=== PATIENT | female | born 1970 | race Hispanic/Latino ===

== ENCOUNTER 2023-11-22 13:39 | Emergency (ER) | payer BC, OTHER ==
[~2023-11-22] VITALS: Ht 167.6 cm; Wt 60.3 kg
[2023-11-22] MEDS: ketOROlac 60 MG VIAL (30MG/ML) IM ONE (14:53)
[2023-11-22] MEDS: dexaMETHasone SOD PHOSPHATE 4 MG/ML 1ML VIAL IM ONE (14:53)
[2023-11-22] MEDS ORDERED: METH4TAB3 PO (15:32)
[2023-11-22] MEDS ORDERED: CYCL-309 PO (15:32)
[2023-11-22 15:53] VITALS: BP 110/76; PULSE 86; RESP 16; TEMP 98.2; O2SAT 99
== END 2023-11-22 15:54 | disposition home or self-care (01) ==
LOC: EDH 13:39
DX: S46.811A Strain of other muscles, fascia and tendons at shoulder and upper arm level, right arm, initial encounter (principal); Z88.1 Allergy status to other antibiotic agents; Z98.890 Other specified postprocedural states; X58.XXXA Exposure to other specified factors, initial encounter; Y93.89 Activity, other specified; Y92.89 Other specified places as the place of occurrence of the external cause; Y99.8 Other external cause status
CPT/HCPCS: 99284; 73030; 96372 ×2; J1100; J1885